=== PATIENT | male | born 1940 | race Caucasian/White ===

== ENCOUNTER 2016-10-26 08:20 | Day surgery (SDC) | payer MEDICARE ==
[~2016-10-26] VITALS: Ht 180.3 cm; Wt 72.7 kg
[~2016-10-26 08:20] MED LIST: FISH1000 PO; PERC5TAB12 PO; TAB-TAB PO
[2016-10-26 08:34] VITALS: BP 144/81; PULSE 67; RESP 20; TEMP 98.3; O2SAT 97
[2016-10-26] MEDS ORDERED: SODIUM CHLORIDE 0.9% 1000 ML IV SCH (09:00)
[2016-10-26 09:11] LABS: AUTOMATED NEUTROPHIL # 4.2 TH/MM3 (1.8-7.7); BASOPHIL % 0.7 % (0.0-2.0); EOSINOPHIL # 0.3 TH/MM3 (0-0.4); EOSINOPHIL % 4.1 % (0.0-4.0); HEMATOCRIT 41.2 % (39.0-51.0); HEMO FLAGS DIFF FINAL; LYMPH % 15.2 % (9.0-44.0); LYMPHOCYTE # 0.9 TH/MM3 (1.0-4.8); MEAN CELL VOLUME 95.6 FL (80.0-100.0); MEAN CORPUSCULAR HGB CONC 34.6 % (32.0-36.0); MONO % 12.1 % (0.0-8.0); NEUT % 67.9 % (16.0-70.0); PLATELET COUNT 211 TH/MM3 (150-450); RED BLOOD COUNT 4.31 MIL/MM3 (4.50-5.90); RED CELL DISTRIBUTION WIDTH 13.1 % (11.6-17.2); WHITE BLOOD COUNT 6.2 TH/MM3 (4.0-11.0)
[2016-10-26 09:23] LABS: APTT (PATIENT) 23.8 SEC (24.3-30.1); INTERNATIONAL NORMALIZED RATIO 0.9 RATIO; PROTHROMBIN TIME - PATIENT 10.3 SEC (9.8-11.6)
[2016-10-26] MEDS ORDERED: CHLORHEXIDINE GLUCONATE 2 % 1 PACK (2 CLOTHS) TOPICAL SCH (09:30)
[2016-10-26] MEDS ORDERED: VANCOMYCIN 1000 MG/NS 250 ML - implanted port/tunneled catheter IV SCH ×2 (09:30)
[2016-10-26] MEDS ORDERED: ceFAZolin 2 GM PREMIX 50 ML - implanted port/tunneled catheter insertion IV SCH (09:30)
[2016-10-26] MEDS ORDERED: POVIDONE IODINE 5% (ANTISEPSIS KIT) 4 APPLICATIONS EACH NARE SCH (09:30)
[2016-10-26] MEDS ORDERED: MIDAZOLAM HCL 5 MG/5 ML VIAL ONE (10:43)
[2016-10-26] MEDS ORDERED: fentaNYL CITRATE 250 MCG/5 ML AMP ONE (10:44)
[2016-10-26] MEDS ORDERED: LIDOCAINE 1%/EPINEPHrine 1:100,000 SOLN 20 ML VIAL ONE (10:59)
[2016-10-26 12:30] VITALS: BP 126/67; PULSE 58; RESP 16; TEMP 98.1; O2SAT 96
[2016-10-26 12:45] VITALS: BP 126/70; PULSE 65; RESP 16; O2SAT 95
[2016-10-26 13:00] VITALS: BP 124/62; PULSE 58; RESP 16; O2SAT 95
[2016-10-26 13:30] VITALS: BP 124/57; PULSE 62; RESP 16; O2SAT 95
[2016-10-26] MEDS ORDERED: SODIUM CHLORIDE 0.9% FLUSH 10 ML FLUSH IVF PRN (13:30)
--- NOTE | 2016-10-26 13:33 | PD.RAD ---
Post Procedure Progress Note Pre Procedure Diagnosis: (1) Metastatic disease Post Procedure Diagnosis: (1) Metastatic disease Procedure Date: Oct 26, 2016 Supervising Radiologist: Killian Cuellar JR Proceduralist/Assist: Kathrin Gibson, RT(R), Hilary Villareal RT(R)() Anesthesia: Conscious Sedation Plan of Activity Patient to Unit: [facility] Patient Condition: Good See PACS Report for procedural detail/treatment Central Venous Access Device Procedure 1 Right Internal Jugular Infusaport Removal single lumen Procedure 2 Left Internal Jugular Infusaport Placement single lumen Turkmen: 8 Findings: Original port on right has eroded through the skin. This was removed and pocket packed with Iodophore gauze New left sided port placed. This functions well and is ready for use. Plan Return to IR this tuesday for exchange of packing in right pocket F/U with IR or a physician in 10-14 days for a site check on left. Jr. Polo,Killian Bonds MD Oct 26, 2016 13:33
[2016-10-26 14:14] VITALS: BP 94/55; PULSE 73; RESP 16; O2SAT 95
--- NOTE | 2016-10-27 08:19 | RADRPT ---
EXAM DATE/TIME: 10/26/2016 00:00 [facility] COMPARISON: No previous studies available for comparison. INDICATIONS : Patient with history of prostate cancer in need of Nvexi-z-Mvus removal due to infection. 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 Vancomycin within 2 hrs of procedure, Ancef (or alternative) within 1 hr of procedure. PROCEDURE : 1. Removal of Nxgbvy-o-adgb. 2. Conscious sedation with continuous EKG and oximetry monitoring. The risk, benefits and potential complications of Uwagou-n-Nmnw removal were discussed. Written conse nt was obtained. The patient was placed supine. The chest wall was prepped in sterile fashion. Full sterile techniqu e was used, including cap, mask, sterile gloves and gown, and a large sterile sheet. Hand hygiene an d 2% chlorhexidine and/or Betadine/alcohol prep was utilized per protocol for cutaneous antisepsis. T he port is exposed to the skin surface. The skin and subcutaneous tissues were infiltrated with loca l anesthetic solution. A small incision was made, the subcutaneous pocket was opened. The port was di ssected from the subcutaneous tissues and easily removed in one piece. The pocket incision was parti ally closed with subcuticular Vicryl suture. The pocket was packed with iodophor gauze Conscious sedation was performed with the prescribed dosages and duration as above in the presence of an independent trained radiology nurse to assist in the monitoring of the patient. EKG and oximetry remained stable throughout the procedure. The patient tolerated the procedure well and there were no complications. The patient was sent to post anesthesia recovery in stable condition. CONCLUSION: Uncomplicated port removal as above. The pocket was packed with iodophor gauze. The patient will retu rn in 3 days for packing exchange. Killian Cuellar Jr., MD on October 27, 2016 at 8:02 Board Certified Radiologist. This report was verified electronically.
--- NOTE | 2016-10-27 08:20 | RADRPT ---
EXAM DATE/TIME: 10/26/2016 10:58 [facility] COMPARISON: No previous studies available for comparison. INDICATIONS : Patient with history of prostate cancer in need of Jbiky-s-Kvlf placement. Right sided chest port is being removed secondary to infection. 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 Vancomycin within 2 hours of procedure, Ancef (or alternative) within 1 hour of procedure. DEVICE: 1. 8 Croatian single lumen Smart power port with vortex PROCEDURE : 1. Continuous pulse oximetry and EKG monitoring. 2. Intravenous conscious sedation. 3. Ultrasound guidance for venous access. 4. Fluoroscopic guided implantable central venous port placement. The patient was placed supine. The neck was prepped in sterile fashion. Full sterile technique was u sed, including cap, mask, sterile gloves and gown, and a large sterile sheet. Hand hygiene and 2% ch lorhexidine Betadine was utilized per protocol for cutaneous antisepsis with appropriate dry time for site. The skin and subcutaneous tissues were infiltrated with local anesthetic solution. Under direct ultrasound guidance, central venous access was accomplished in the targeted vessel. The ultrasound images depicting access guidance were stored and saved to PACS for permanent record. A s ubcutaneous pocket was created using blunt dissection. The port was introduced to the pocket. The c atheter tubing was fed through a subcutaneous tunnel to the venotomy site. The catheter tubing was c ut to a suitable length and then was introduced through a valved Peel-Away sheath and positioned with catheter tubing tip at the cavo-atrial junction level. The pocket incision was closed with subcutic ular Vicryl suture. Steri-Strips were applied. The port was flushed and locked with heparin solutio n per protocol. Sterile dressing was applied to the site. The patient tolerated the procedure well. Conscious sedation was performed with the prescribed dosages and duration as above in the presence of an independent trained radiology nurse to assist in the monitoring of the patient. EKG and oximetry remained stable throughout the procedure. The patient tolerated the procedure well and there were no complications. The patient was sent to post anesthesia recovery in stable condition. CONCLUSION: Uncomplicated ultrasound and fluoroscopic guided implanted central venous port catheter placement as described in detail above. An 8 Croatian Power port was placed. Kililan Cuellar Jr., MD on October 27, 2016 at 8:18 Board Certified Radiologist. This report was verified electronically.
== END 2016-10-26 14:30 | disposition home or self-care (01) ==
LOC: HROP 08:20 → HRIP 08:23 → HROP 14:30
PROVIDERS: ATTEND Internal Medicine Hematology & Oncology
DX: Z45.2 Encounter for adjustment and management of vascular access device (principal); C61 Malignant neoplasm of prostate; C79.51 Secondary malignant neoplasm of bone; R00.1 Bradycardia, unspecified
CPT/HCPCS: 36561; 36590; 76937; 77001; 85025; 85610; 85730; 99152; 99153; C1788; J0690; J1642; J2250; J3010; J3370; J7030; J7050

== ENCOUNTER 2016-10-29 10:00 | Day surgery (SDC) | payer MEDICARE ==
[2016-10-29 10:19] VITALS: BP 128/69; PULSE 62; RESP 20; TEMP 97.7; O2SAT 95
== END 2016-10-29 11:00 | disposition home or self-care (01) ==
LOC: HROP 10:00 → HRIP 10:03 → HROP 11:00
PROVIDERS: ATTEND Radiology Body Imaging
DX: Z48.01 Encounter for change or removal of surgical wound dressing (principal)

== ENCOUNTER 2016-11-02 11:04 | Day surgery (SDC) | payer MEDICARE ==
[2016-11-02 11:19] VITALS: BP 150/71; PULSE 75; RESP 18; TEMP 97.5; O2SAT 96
== END 2016-11-02 11:40 | disposition home or self-care (01) ==
LOC: HROP 11:04 → HRIP 11:07 → HROP 11:40
PROVIDERS: ATTEND Radiology Body Imaging
DX: Z48.01 Encounter for change or removal of surgical wound dressing (principal)
CPT/HCPCS: 99211; G0463

== ENCOUNTER 2016-11-05 11:24 | Day surgery (SDC) | payer MEDICARE ==
[2016-11-05 11:45] VITALS: BP 138/74; PULSE 64; RESP 20; TEMP 97.9; O2SAT 95
[2016-11-09] MEDS ORDERED: MULT-65 PO (14:00)
[2016-11-09] MEDS ORDERED: PERC5TAB12 PO (14:00)
== END 2016-11-05 12:30 | disposition home or self-care (01) ==
LOC: HROP 11:24 → HRIP 11:58 → HROP 12:30
PROVIDERS: ATTEND Radiology Body Imaging
DX: Z48.01 Encounter for change or removal of surgical wound dressing (principal)
CPT/HCPCS: 99211; G0463

== ENCOUNTER 2016-11-11 08:46 | Day surgery (SDC) | payer MEDICARE ==
[~2016-11-11 08:46] MED LIST changes: -FISH1000 PO; +MULT-65 PO; -TAB-TAB PO
[2016-11-11 09:15] VITALS: BP 110/70; PULSE 67; RESP 18; TEMP 97.9; O2SAT 95
== END 2016-11-11 09:50 | disposition home or self-care (01) ==
LOC: HROP 08:46 → HRIP 08:48 → HROP 09:50
PROVIDERS: ATTEND Radiology Body Imaging
DX: Z48.01 Encounter for change or removal of surgical wound dressing (principal)
CPT/HCPCS: 99212; G0463

== ENCOUNTER 2016-11-22 11:26 | Day surgery (SDC) | payer MEDICARE ==
[2016-11-22 11:30] VITALS: BP 109/68; PULSE 86; RESP 16; TEMP 97.6; O2SAT 98
== END 2016-11-22 11:55 | disposition home or self-care (01) ==
LOC: HROP 11:26 → HRIP 11:27 → HROP 11:55
PROVIDERS: ATTEND Radiology Body Imaging
DX: Z48.01 Encounter for change or removal of surgical wound dressing (principal)
CPT/HCPCS: 99212; G0463

== ENCOUNTER 2017-05-08 14:09 | Emergency (ER) | payer MEDICARE ==
[~2017-05-08] VITALS: Ht 182.9 cm; Wt 75.0 kg
[2017-05-08 14:12] VITALS: BP 132/85; PULSE 119; RESP 18; TEMP 98.6; O2SAT 97
--- NOTE | 2017-05-08 14:26 | PD ---
HPI Chief Complaint: Altered Mental Status Time Seen by Provider: 14:23 Travel History International Travel<30 days: No Contact w/Intl Traveler<30days: No Traveled to known affect area: No History of Present Illness HPI Patient is a pleasant 77-year-old male who reportedly is on hospice at home secondary to prostate cancer with metastases to his brain. He is a poor historian and is confused. Per home health patient was scurrying around the house and experienced a fall. No loss of consciousness. Patient does not recall this fall. It appears that he is being considered for in-house hospice and wanted to rule out a head injury prior to admission. PFSH Past Medical History Heart Rhythm Problems: Yes (BRADYCARDIA) Cancer: Yes (prostate) Cardiovascular Problems: No Dementia: Yes Diabetes: No Diminished Hearing: No Endocrine: No Gastrointestinal Disorders: Yes Genitourinary: No Hepatitis: No Hiatal Hernia: No Immune Disorder: No Musculoskeletal: Yes Neurologic: No Psychiatric: No Reproductive: No Respiratory: No Immunizations Current: Yes (flu and pneumonia) Thyroid Disease: No ?: Not Past Surgical History Abdominal Surgery: No AICD: No Cardiac Surgery: No Ear Surgery: No Endocrine Surgery: No Eye Surgery: No Genitourinary Surgery: Yes Gynecologic Surgery: No Joint Replacement: No Oral Surgery: No Pacemaker: No Thoracic Surgery: No Tonsillectomy: Yes Other Surgery: Yes (right rotator cuff repair, tonsils, adenoid, vasectomy) Social History Alcohol Use: No Tobacco Use: No Substance Use: No Allergies-Medications (Allergen,Severity, Reaction): Coded Allergies: petrolatum,white (Unverified Allergy, Severe, Rash, 05/08/17) bacitracin (Unverified Allergy, Mild, Rash, 05/08/17) gramicidin D (Unverified Allergy, Mild, Rash, 05/08/17) latex (Unverified Allergy, Mild, Rash, 05/08/17) neomycin (Unverified Allergy, Mild, Rash, 05/08/17) polymyxin B (Unverified Allergy, Mild, Rash, 05/08/17) Uncoded Allergies: NICKEL (Allergy, Severe, PT DENIES, 01/03/11) Reported Meds & Prescriptions Reported Meds & Active Scripts Active Reported Morphine Liq (Morphine Sulfate) 20 Mg/Ml Liq 15 Mg PO Q4H Morphine Liq (Morphine Sulfate) 10 Mg/5 Ml Liq 10 Mg PO Q4H Omeprazole 20 Mg Tab 20 Mg PO DAILY Dexamethasone 4 Mg Tab 4 Mg PO DAILY Ditropan (Oxybutynin Chloride) 5 Mg Tab 5 Mg PO HS Docusate Sodium-Senna (Sennosides-Docusate Sodium) 8.6-50 Mg Tab 2 Tab PO BID Review of Systems General / Constitutional: No: Fever Eyes: No: Visual changes HENT: No: Headaches Cardiovascular: No: Chest Pain or Discomfort Respiratory: No: Shortness of Breath Gastrointestinal: No: Abdominal Pain Genitourinary: No: Dysuria Musculoskeletal: No: Pain Skin: No Rash Neurologic: No: Weakness Psychiatric: No: Depression Endocrine: No: Polydipsia Hematologic/Lymphatic: No: Easy Bruising Physical Exam Narrative GENERAL: Well-nourished, well-developed patient. SKIN: Focused skin assessment warm/dry. HEAD: Normocephalic. Abrasion measuring approximately 4-5 cm in diameter without hematoma noted to the posterior scalp EYES: No scleral icterus. No injection or drainage. NECK: Supple, trachea midline. No JVD or lymphadenopathy. Full range of motion CARDIOVASCULAR: Regular rate and rhythm without murmurs, gallops, or rubs. RESPIRATORY: Breath sounds equal bilaterally. No accessory muscle use. GASTROINTESTINAL: Abdomen soft, non-tender, nondistended. MUSCULOSKELETAL: No cyanosis, or edema. BACK: Nontender without obvious deformity. No CVA tenderness. Data Data Last Documented VS Vital Signs Date Time Temp Pulse Resp B/P (MAP) Pulse Ox O2 Delivery O2 Flow Rate FiO2 05/08/17 15:17 96 18 142/86 (104) 96 05/08/17 14:13 Room Air 05/08/17 14:[address] Brain W/O Iv Contrast(Rout) (05/08/17 ) Ct Cerv Spine W/O Contrast (05/08/17 ) Morphine Liq (Roxanol Liq) (05/08/17 15:45) MDM Medical Decision Making Medical Screen Exam Complete: Yes Emergency Medical Condition: Yes Differential Diagnosis Scalp abrasion, CVA, cervical fracture Narrative Course We will await home health to discuss admission to inpatient hospice. Last [address] 05/08/17 0000 Signed Impressions: Service Date/Time: Monday, May 08, 2017 14:55 - CONCLUSION: 1. No acute intracranial findings. 2. 2 adjacent 1 cm oval lucencies in the left frontal skull are nonspecific and could represent small metastatic foci but this would be an uncommon appearance for prostate bone metastasis.. Kunal Walker MD Cervical Spine CT 05/08/17 0000 Signed Impressions: Service Date/Time: Monday, May 08, 2017 14:55 - CONCLUSION: No evidence of fracture. Severe multilevel degenerative findings. Kunal Walker MD Hospice nurses present. Patient is being transferred to inpatient hospice care Diagnosis Primary Impression: Risk for falls Additional Impression: Scalp abrasion Qualified Codes: S00.01XA - Abrasion of scalp, initial encounter Patient Instructions: General Instructions Med/Other Pt SpecificInfo: No Meds Exist/No RX given Disposition: 70 TRANSFER TO OTHER FACILITY Condition: Good Everett Clement MD May 08, 2017 14:26
[2017-05-08] MEDS ORDERED: DEXA4TAB PO (14:29)
[2017-05-08] MEDS ORDERED: DOCU8.6T PO (14:29)
[2017-05-08] MEDS ORDERED: OMEP20TA93 PO (14:29)
[2017-05-08] MEDS ORDERED: MORP20SO2 PO (14:29)
[2017-05-08] MEDS ORDERED: MORP1SOL3 PO (14:29)
[2017-05-08] MEDS ORDERED: OXYB5TAB8 PO (14:29)
[2017-05-08 15:17] VITALS: BP 142/86; PULSE 96; RESP 18; O2SAT 96
--- NOTE | 2017-05-08 15:35 | RADRPT ---
EXAM DATE/TIME: 05/08/2017 14:55 [facility] COMPARISON: No previous studies available for comparison. INDICATIONS : Fall. Increased agitation. Confusion. RADIATION DOSE: 57.92 CTDIvol (mGy) MEDICAL HISTORY : Carcinoma, prostate. Metastatic, brain. SURGICAL HISTORY : Tonsillectomy. ENCOUNTER: Initial ACUITY: 1 day PAIN SCALE: 0/10 LOCATION: cranial TECHNIQUE: Multiple contiguous axial images were obtained of the head. Using automated exposure control and adj ustment of the mA and/or kV according to patient size, radiation dose was kept as low as reasonably a chievable to obtain optimal diagnostic quality images. DICOM format image data is available electro nically for review and comparison. FINDINGS: CEREBRUM: The ventricles are normal for age. No evidence of midline shift, mass lesion, hemorrhage or acute in farction. No extra-axial fluid collections are seen. POSTERIOR FOSSA: The cerebellum and brainstem are intact. The 4th ventricle is midline. The cerebellopontine angle i s unremarkable. EXTRACRANIAL: The visualized portion of the orbits is intact. SKULL: 2 adjacent 1 cm oval lucencies in the left frontal skull are nonspecific. CONCLUSION: 1. No acute intracranial findings. 2. 2 adjacent 1 cm oval lucencies in the left frontal skull are nonspecific and could represent small metastatic foci but this would be an uncommon appearance for prostate bone metastasis.. Kunal Walker MD on May 08, 2017 at 15:30 Board Certified Radiologist. This report was verified electronically.
--- NOTE | 2017-05-08 15:38 | RADRPT ---
EXAM DATE/TIME: 05/08/2017 14:55 [facility] COMPARISON: No previous studies available for comparison. INDICATIONS : Fall. Increased agitation. Confusion. RADIATION DOSE: 26.64 CTDIvol (mGy) MEDICAL HISTORY : Carcinoma, prostate. Metastatic, brain. SURGICAL HISTORY : Tonsillectomy. ENCOUNTER: Initial ACUITY: 1 day PAIN SCALE: 0/10 LOCATION: neck TECHNIQUE: Volumetric scanning of the cervical spine was performed. Multiplanar reconstructions in the sagittal, coronal and oblique axial planes were performed. Using automated exposure control and adjustment o f the mA and/or kV according to patient size, radiation dose was kept as low as reasonably achievable to obtain optimal diagnostic quality images. DICOM format image data is available electronically f or review and comparison. FINDINGS: VERTEBRAE: Normal vertebral body height. ALIGNMENT: 2 mm anterolisthesis C3 on C4. 2 mm anterolisthesis C4 on C5. 2 mm anterolisthesis C7 on T1. C2-C3: Severe left-sided facet arthrosis. Broad-based disc osteophyte complex. Mild left neural foraminal na rrowing. Central canal diameter within normal limits. C3-C4: Severe right-sided facet arthrosis. Moderate bilateral neural foraminal narrowing. Central canal diam eter within normal limits. C4-C5: Severe left-sided facet arthrosis. Severe left neuroforaminal narrowing. Central canal diameter withi n normal limits. C5-C6: Moderate bilateral facet arthrosis and broad-based disc osteophyte complex. Severe left neural forami nal narrowing. Moderate right neural foraminal narrowing. Mild central canal narrowing. C6-C7: Broad-based disc osteophyte complex. Mild central canal narrowing. Mild bilateral neural foraminal na rrowing. C7-T1: The bony spinal canal is normal in size. No evidence of disc bulge or herniation. The neural forami na are bilaterally patent. CONCLUSION: No evidence of fracture. Severe multilevel degenerative findings. Kunal Walker MD on May 08, 2017 at 15:33 Board Certified Radiologist. This report was verified electronically.
[2017-05-08] MEDS ORDERED: MORPHINE SULFATE ORAL SOLN 10 MG/0.5 ML SYRINGE PO ONE (15:45)
[2017-05-08 16:52] VITALS: RESP 18
== END 2017-05-08 17:18 | disposition short-term general hospital (02) ==
LOC: PHED 14:09
DX: S00.01XA Abrasion of scalp, initial encounter (principal); C61 Malignant neoplasm of prostate; C79.31 Secondary malignant neoplasm of brain; F03.90 Unspecified dementia, unspecified severity, without behavioral disturbance, psychotic disturbance, mood disturbance, and anxiety; R41.0 Disorientation, unspecified; W19.XXXA Unspecified fall, initial encounter
CPT/HCPCS: 70450; 72125; 96374